=== PATIENT | female | born 1980 ===

== ENCOUNTER 2023-07-06 10:08 | Emergency (ER) | payer SELFPAY ==
[2023-07-06 10:40] VITALS: BP 134/60
[2023-07-06 10:50] LABS: BILIRUBIN,URINE NEGATIVE (NEGATIVE); GLUCOSE, URINE (UA) NEGATIVE (NEGATIVE); KETONES,URINE (UA) NEGATIVE (NEGATIVE); LEUKOCYTE ESTERASE, URINE SMALL (NEGATIVE); NITRITE,URINE NEGATIVE (NEGATIVE); OCCULT BLOOD,URINE TRACE-INTA (NEGATIVE); PH,URINE 6.5 PH (5.0-7.5); PROTEIN,URINE NEGATIVE (NEGATIVE); UROBILINOGEN,URINE 0.2 (NORMAL) E.U./dL (NORMAL)
[2023-07-06 11:01] LABS: CLARITY,URINE CLEAR (CLEAR); RBC,URINE 0-5 /HPF (0-5)
[2023-07-06 11:02] LABS: BACTERIA,URINE Few /HPF (None Seen); SQUAMOUS EPITHELIAL CELL,UR MOD Squamous (<= Few)
--- NOTE | 2023-07-06 11:15 | ED Physician Documentation ---
PD HPI FEMALE - Stated complaint Stated Complaint: FEMALE - Chief complaint Chief Complaint: General - History obtained from History obtained from: Patient - History of Present Illness Timing - onset: Yesterday Timing - details: Gradual onset, Still present (much worse today, with frequency of urine, discomfort with urination.) Associated symptoms: Vaginal discharge (mild discharge which she says is common. No discomfort with wiping after urination.). No: Fever, Vaginal bleeding Similar symptoms before: Diagnosis (UTIs) Review of Systems Constitutional: denies: Fever, Chills GI: denies: Abdominal Pain, Nausea, Vomiting PD PAST MEDICAL HISTORY - Past Medical History DIRECTOR OF HOUSING: None : None - Present Medications Home Medications: Ambulatory Orders Medication Instructions Recorded Confirmed Fluconazole [Diflucan] 150 mg PO Q3D #2 tablet 07/06/23 Phenazopyridine HCl [Pyridium] 100 mg PO TID PRN #15 tablet 07/06/23 cephALEXin [Keflex] 500 mg PO TID #15 cap 07/06/23 - Allergies Allergies/Adverse Reactions: Allergies Allergy/AdvReac Type Severity Reaction Status Date / Time No Known Drug Allergies Allergy Verified 07/06/23 10:33 PD ED PE NORMAL - Vitals Vital signs reviewed: Yes - General General: Alert and oriented X 3, No acute distress, Well developed/nourished - Female Female : Deferred - Back Back: No CVA TTP - Derm Derm: Normal color, Warm and dry - Neuro Neuro: Alert and oriented X 3, Normal speech Results - Vitals Vitals: Oxygen O2 Source Room air - Labs Labs: Laboratory Tests 07/06/23 10:36 Urine Color YELLOW Urine Clarity CLEAR Urine pH 6.5 Ur Specific [place] 1.010 Urine Protein NEGATIVE Urine Glucose (UA) NEGATIVE Urine Ketones NEGATIVE Urine Occult Blood TRACE-INTA Urine Nitrite NEGATIVE Urine Bilirubin NEGATIVE Urine Urobilinogen 0.2 (NORMAL) Ur Leukocyte Esterase SMALL H Urine RBC 0-5 Urine WBC 6-10 H Ur Squamous Epith Cells MOD Squamous H Urine Bacteria Few Ur Microscopic Review INDICATED Urine Culture Comments NOT INDICATED PD Medical Decision Making - ED course Complexity details: reviewed results (UA is not positive for UTI but some WBC and bacteria seen. I would treat based on her symptoms. Consider yeast and shared discussion with pt is to Rx antifungal as well rather than doing pelvix exam. [place] to attend a wedding, which starts in about an hour here in [place].), considered differential (her symptoms are c/w cystitis and she has had UTIs in the past. She states mild vag discharge but is common for her. ), d/w patient Departure - Departure Disposition: 01 Home, Self Care Clinical Impression: Dysuria, Cystitis Condition: Stable Record reviewed to determine appropriate education?: Yes Instructions: ED UTI Cystitis Female Prescriptions: Fluconazole [Diflucan] 150 mg PO Q3D #2 tablet cephALEXin [Keflex] 500 mg PO TID #15 cap Phenazopyridine HCl [Pyridium] 100 mg PO TID PRN #15 tablet PRN Reason: Abdominal Pain Comments: Stay well-hydrated. Use the cephalexin 3 times daily for 5 days for bladder infection. You can use the phenazopyridine 3 times daily as needed for the disc omfort. This will turn your urine and will orange-colored. Tylenol ibuprofen if needed for discomfort. We can go with an antifungal tablet later today or tomorrow with a repeat in 3 days for potential of yeast infection. Forms: PCP List Discharge Date/Time: 07/06/23 12:42
[2023-07-06] MEDS ORDERED: cephALEXin 250 MG CAPSULE PO STA (11:25)
[2023-07-06] MEDS ORDERED: PHENAZOPYRIDINE 100 MG TABLET PO STA (11:25)
== END 2023-07-06 12:42 | disposition home or self-care (01) ==
LOC: ED 10:08
DX: N30.90 Cystitis, unspecified without hematuria (principal)
CPT/HCPCS: 81001; 99283; A9270; 81003; 87086